=== PATIENT | male | born 1975 | race Caucasian/White ===

== ENCOUNTER 2018-05-21 13:52 | Emergency (ER) | payer MEDICAID ==
[~2018-05-21] VITALS: Ht 170.2 cm; Wt 68.2 kg
[2018-05-21 14:02] VITALS: BP 107/64
[2018-05-21] MEDS ORDERED: ONDANSETRON HCL 4 MG/2 ML VIAL IVP ONE (15:30)
[2018-05-21] MEDS ORDERED: SODIUM CHLORIDE 0.9% 1,000 ML IV ONE (15:30)
== END 2018-05-21 16:47 | disposition home or self-care (01) ==
LOC: EMS 14:21
DX: F11.10 Opioid abuse, uncomplicated (principal); R11.2 Nausea with vomiting, unspecified; R19.7 Diarrhea, unspecified; F17.210 Nicotine dependence, cigarettes, uncomplicated; F12.90 Cannabis use, unspecified, uncomplicated

== ENCOUNTER 2018-05-23 11:06 | Emergency (ER) | payer MEDICAID ==
[~2018-05-23] VITALS: Ht 172.7 cm; Wt 71.4 kg
[2018-05-23 12:50] VITALS: BP 121/72
[2018-05-24] MEDS ORDERED: BACTDSB PO (06:44)
== END 2018-05-23 13:33 | disposition home or self-care (01) ==
LOC: EMS 11:06
DX: L02.416 Cutaneous abscess of left lower limb (principal); F11.90 Opioid use, unspecified, uncomplicated; F12.90 Cannabis use, unspecified, uncomplicated; F17.210 Nicotine dependence, cigarettes, uncomplicated
CPT/HCPCS: 99406

== ENCOUNTER 2018-05-24 06:35 | Emergency (ER) | payer MEDICAID ==
[~2018-05-24] VITALS: Ht 170.2 cm; Wt 68.2 kg
[2018-05-24 06:41] VITALS: BP 118/79
[2018-05-24] MEDS ORDERED: BACTDSB PO (06:44)
== END 2018-05-24 07:46 | disposition left against medical advice (07) ==
LOC: EMS 06:35
DX: L02.91 Cutaneous abscess, unspecified (principal); Z53.21 Procedure and treatment not carried out due to patient leaving prior to being seen by health care provider

== ENCOUNTER 2018-05-24 08:31 | Emergency (ER) | payer MEDICAID ==
[~2018-05-24] VITALS: Ht 170.2 cm; Wt 77.3 kg
[~2018-05-24 08:31] MED LIST: BACTDSB PO
[2018-05-24] MEDS ORDERED: BACITRACIN 0.9 GM PACKET OINTMENT TP ONE (09:00)
[2018-05-24] MEDS ORDERED: SULFAMETHOX/TRIMETH DS 800-160 MG/TABLET PO ONE (09:00)
[2018-05-24] MEDS ORDERED: CEPHALEXIN MONOHYDRATE 500 MG CAPSULE PO ONE (09:00)
[2018-05-24 09:06] VITALS: BP 118/64
== END 2018-05-24 09:10 | disposition home or self-care (01) ==
LOC: EMS 08:31
DX: L02.416 Cutaneous abscess of left lower limb (principal); L03.116 Cellulitis of left lower limb; F17.210 Nicotine dependence, cigarettes, uncomplicated; F12.90 Cannabis use, unspecified, uncomplicated; F11.90 Opioid use, unspecified, uncomplicated; Z79.2 Long term (current) use of antibiotics

== ENCOUNTER 2018-06-01 08:27 | Emergency (ER) | payer MEDICAID ==
[~2018-06-01] VITALS: Ht 170.2 cm; Wt 68.2 kg
[2018-06-01] MEDS ORDERED: ACETAMINOPHEN 500 MG TABLET PO ONE (09:30)
[2018-06-01] MEDS ORDERED: NEOMYCIN/POLYMYXIN B/HYDROCORT 10 ML OTIC SOLUTION AD ONE (09:30)
[2018-06-01 10:10] VITALS: BP 118/70
== END 2018-06-01 10:26 | disposition home or self-care (01) ==
LOC: EMS 08:28
DX: H61.891 Other specified disorders of right external ear (principal); G89.29 Other chronic pain; M54.5 Low back pain; F17.210 Nicotine dependence, cigarettes, uncomplicated; F12.90 Cannabis use, unspecified, uncomplicated; F11.90 Opioid use, unspecified, uncomplicated; Z79.899 Other long term (current) drug therapy
CPT/HCPCS: 99406